=== PATIENT | female | born 1975 | race Caucasian/White ===

== ENCOUNTER 2017-10-20 20:46 | Inpatient (IN) | payer OTHER ==
[2017-10-20] MEDS ORDERED: ASPIRIN 81 MG CHEWABLE TABLETS PO ONE (21:03)
--- NOTE | 2017-10-20 21:06 | PDOC ---
History of Present Illness - General History Source: Patient Exam Limitations: No Limitations <Ina Caldwell - Last Filed: 10/20/17 23:12> - General History Source: Patient - History of Present Illness Presenting Symptoms: Chest Pain Timing/Duration: reports: changing over time Severity/Quality: reports: pressure Location: reports: other (left sided chest pain) Chest Pain Radiation: reports: arms (radiates to left arm) Activities at Onset: reports: other (fighting with her daughter) Modifying Factors: improves with: nitroglycerin Nitro Today/Relief: Yes: 0.4 mg x 2, provided by EMS Aspirin Received prior to arrival (Core Measure): Yes: 325 mg x 1, provided by EMS Beta Jenaro given by EMS (Core Measure): Yes <Cassidy Hall - Last Filed: 10/21/17 00:12> - General Stated Complaint: CHEST PAIN Time Seen by Provider: 10/20/17 20:53 - History of Present Illness Initial Comments: 10/20/17 21:09 The patient is a 38 y/o female with no significant past medical history, who presents with intermittent left-sided chest pain radiating to her left arm that began tonight after an argument with her daughter. She denies any diaphoresis or vomiting. Denies any nausea or lightheadedness. She notes that the pain was sudden and radiates to the left arm. The pain is non pleuritic with no alleviating or exacerbating factors. She denies taking any medication. She was administered 325 mg of aspirin by EMS. No PSH Allergies - NKA (Ina Caldwell) Past History <Ina Caldwell - Last Filed: 10/20/17 23:12> - Family Disease History Family Disease History: Diabetes: Brother - Suicide/Smoking/Psychosocial Hx Smoking Status: No Smoking History: Never smoked Number of Cigarettes Smoked Daily: 0 <Cassidy Hall - Last Filed: 10/21/17 00:12> - Past Medical History Allergies/Adverse Reactions: Allergies Allergy/AdvReac Type Severity Reaction Status Date / Time No Known Allergies Allergy Verified 10/20/17 21:48 Home Medications: Ambulatory Orders NK [No Known Home Medication] 10/20/17 Review of Systems - Review of Systems Able to Perform ROS?: Yes <Ina Caldwell - Last Filed: 10/20/17 23:12> <Cassidy Hallh - Last Filed: 10/21/17 00:12> - Review of Systems Comments:: 10/20/17 21:10 CONSTITUTIONAL: Absent: fever, chills, diaphoresis, generalized weakness, malaise, loss of appetite HEENT: Absent: rhinorrhea, nasal congestion, throat pain, throat swelling, difficulty swallowing, mouth swelling, ear pain, eye pain, visual Changes CARDIOVASCULAR: Present:chest pain Absent: syncope, palpitations, irregular heart rate, lightheadedness, peripheral edema RESPIRATORY: Absent: cough, shortness of breath, dyspnea with exertion, orthopnea, wheezing, stridor, hemoptysis GASTROINTESTINAL: Absent: abdominal pain, abdominal distension, nausea, vomiting, diarrhea, constipation, melena, hematochezia GENITOURINARY: Absent: dysuria, frequency, urgency, hesitancy, hematuria, flank pain, genital pain MUSCULOSKELETAL: Present: left arm pain Absent: myalgia, arthralgia, joint swelling SKIN: Absent: rash, itching, pallor HEMATOLOGIC/IMMUNOLOGIC: Absent: easy bleeding, easy bruising, lymphadenopathy, frequent infections ENDOCRINE: Absent: unexplained weight gain, unexplained weight loss, heat intolerance, cold intolerance NEUROLOGIC: Absent: headache, focal weakness or paresthesias, dizziness, unsteady gait, seizure, mental status changes, bladder or bowel incontinence PSYCHIATRIC: Absent: anxiety, depression, suicidal or homicidal ideation, hallucinations. (Ina Caldwell) *Physical Exam <Ina Caldwell - Last Filed: 10/20/17 23:12> <Cassidy Hall - Last Filed: 10/21/17 00:12> - Vital Signs Last Vital Signs Temp Pulse Resp BP Pulse Ox 97.6 F 90 19 149/72 100 10/20/17 21:42 10/20/17 21:42 10/20/17 21:42 10/20/17 21:42 10/20/17 21:42 - Physical Exam Comments: 10/20/17 21:11 GENERAL: Well developed, well nourished. Awake and alert. No acute distress. HEENT: Normocephalic, atraumatic. PERRLA, EOMI. No conjunctival pallor. Sclera are non- icteric. Moist mucous membranes. Oropharynx is clear. NECK: Supple. Full ROM. No JVD. Carotid pulses 2+ and symmetric, without bruits. No thyromegaly. No lymphadenopathy. CARDIOVASCULAR: Regular rate and rhythm. No murmurs, rubs, or gallops. Distal pulses are 2+ and symmetric. PULMONARY: No evidence of respiratory distress. Lungs clear to auscultation bilaterally. No wheezing, rales or rhonchi. ABDOMINAL: Soft. Non-tender. Non-distended. No rebound or guarding. No organomegaly. Normoactive bowel sounds. MUSCULOSKELETAL Normal range of motion at all joints. No bony deformities or tenderness. No CVA tenderness. EXTREMITIES: No cyanosis. No clubbing. No edema. No calf tenderness. SKIN: Warm and dry. Normal capillary refill. No rashes. No jaundice. NEUROLOGICAL: Alert, awake, appropriate. Cranial nerves 2-12 intact. No deficits to light touch and temperature in face, upper extremities and lower extremities. No motor deficits in the in face, upper extremities and lower extremities. Normoreflexic in the upper and lower extremities. Normal speech. PSYCHIATRIC: Cooperative. Good eye contact. Appropriate mood and affect. (Ina Caldwell) Heart Score/ECG Review - History History: Highly suspicious - Electrocardiogram EKG: Significant ST-depression - Age Age: </= 45 - Risk Factors Based on the list above the patient has:: No risk factors known - Troponin Troponin: >/=3x normal limit - Score Heart Score - Total: 6 <Cassidy Hall - Last Filed: 10/21/17 00:12> ED Treatment Course - LABORATORY CBC & Chemistry Diagram: 10/20/17 21:20 10/20/17 21:20 <Ina Caldwell - Last Filed: 10/20/17 23:12> - LABORATORY CBC & Chemistry Diagram: 10/20/17 21:20 10/20/17 21:20 <Cassidy Hall - Last Filed: 10/21/17 00:12> - ADDITIONAL ORDERS Additional order review: Laboratory Results 10/20/17 10/20/17 10/20/17 22:30 21:20 21:20 PT with INR INR Sodium 143 Potassium 4.1 D Chloride 113 H Carbon Dioxide 23 Anion Gap 7 L BUN 8 D Creatinine 0.6 D Creat Clearance w eGFR > 60 Random Glucose 114 H D Calcium 7.7 L Magnesium 2.3 Total Bilirubin 0.5 D AST 37 ALT 40 D Alkaline Phosphatase 123 H Creatine Kinase 303 H 306 H Creatine Kinase Index 2.5 2.2 CK-MB (CK-2) 7.827 H 6.982 H Troponin I 4.34 H* 2.87 H* Total Protein 7.5 Albumin 3.8 Serum , Qual Negative 10/20/17 21:20 PT with INR 11.20 INR 0.99 Sodium Potassium Chloride Carbon Dioxide Anion Gap BUN Creatinine Creat Clearance w eGFR Random Glucose Calcium Magnesium Total Bilirubin AST ALT Alkaline Phosphatase Creatine Kinase Creatine Kinase Index CK-MB (CK-2) Troponin I Total Protein Albumin Serum , Qual 10/20/17 21:20 RBC 4.93 MCV 69.1 L MCHC 31.6 L RDW 15.1 D MPV 7.9 Neutrophils % 79.1 D Lymphocytes % 16.0 D Monocytes % 3.4 L Eosinophils % 0.8 Basophils % 0.7 - RADIOLOGY Radiology Studies Ordered: Category Date Time Status CHEST X-RAY PORTABLE* [RAD] Stat Radiology 10/20/17 22:22 Taken - Medications Given in the ED: ED Medications Discontinued Medications Generic Name Dose Route Start Last Admin Trade Name Freq PRN Reason Stop Dose Admin Atorvastatin Calcium 10 mg 10/20/17 22:54 10/20/17 23:32 Lipitor - PO 10/20/17 22:55 10 mg ONCE ONE Administration Clopidogrel Bisulfate 75 mg 10/20/17 22:52 10/20/17 23:32 Plavix - PO 10/20/17 22:53 75 mg ONCE ONE Administration Metoprolol Tartrate 25 mg 10/20/17 22:31 10/20/17 23:31 Lopressor - PO 10/20/17 22:32 25 mg ONCE ONE Administration Medical Decision Making - Critical Care Time Total Critical Care Time (minutes): 30 Critical Care Statement: The care of this patient involved high complexity decision making to prevent further life threatening deterioration of the patient 's condition and/or to evaluate & treat vital organ system(s) failure or risk of failure. <Ina Caldwell - Last Filed: 10/20/17 23:12> *DC/Admit/Observation/Transfer <Ina Caldwell - Last Filed: 10/20/17 23:12> - Discharge Dispostion Admit: Yes <Cassidy Hall - Last Filed: 10/21/17 00:12> Diagnosis at time of Disposition: Myocardial infarction Qualifiers: Myocardial infarction ST status: non-ST elevation myocardial infarction Qualified Code(s): I21.4 - Non-ST elevation (NSTEMI) myocardial infarction - Discharge Dispostion Condition at time of disposition: Good - Attestations Scribe Attestion: 10/20/17 21:12 Documentation prepared by BRAXTON Petit, acting as medical writer for Cassidy Hall MD/DO. (Ina Caldwell)
[2017-10-20] MEDS ORDERED: ASPIRIN 81 MG CHEWABLE TABLETS ONE (21:28)
[2017-10-20 21:38] LABS: BASO % 0.7 % (0-2.0); EOS % 0.8 % (0-4.5); HEMATOCRIT 34.1 % (32.4-45.2); HEMOGLOBIN 10.7 GM/dL (10.7-15.3); MCH 21.8 pg (25.7-33.7); MCHC 31.6 g/dl (32.0-36.0); MEAN CELL VOLUME 69.1 fl (80-96); MEAN PLT VOLUME 7.9 fl (7.5-11.1); MONO % 3.4 % (3.8-10.2); NEUT % 79.1 % (42.8-82.8); PLATELET COUNT 328 K/MM3 (134-434); RBC 4.93 M/mm3 (3.60-5.2); RDW 15.1 % (11.6-15.6); WHITE BLOOD COUNT 8.5 K/mm3 (4.0-10.0)
[2017-10-20 21:39] LABS: ADD RBC MORPHOLOGY YES
[2017-10-20 21:51] LABS: INR 0.99 (0.82-1.09); PROTHROMBIN TIME (PATIENT) 11.2 SEC (9.98-11.88)
[2017-10-20 22:00] LABS: ALBUMIN 3.8 g/dl (3.4-5.0); ANION GAP 7 (8-16); BILIRUBIN,TOTAL 0.5 mg/dL (0.2-1.0); BLOOD UREA NITROGEN 8 mg/dL (7-18); CALCIUM 7.7 mg/dL (8.5-10.1); CHLORIDE 113 mmol/L (98-107); CO2 23 mmol/L (21-32); CREATININE 0.6 mg/dL (0.55-1.02); GLUCOSE,RANDOM 114 mg/dL (74-106); MAGNESIUM 2.3 mg/dL (1.8-2.4); POTASSIUM 4.1 mmol/L (3.5-5.1); SGOT/AST 37 U/L (15-37); SGPT/ALT 40 U/L (12-78); SODIUM 143 mmol/L (136-145); TOT PROT 7.5 g/dl (6.4-8.2)
[2017-10-20 22:14] LABS: ALK PHOS 123 U/L (45-117)
[2017-10-20] MEDS ORDERED: METOPROLOL TARTRATE 25 MG TABLET (FP) PO ONE (22:31)
[2017-10-20] MEDS ORDERED: HEPARIN NA (PORCINE) 5,000 UNITS/ML 1ML VIAL IVPUSH PRN ×2 (22:35→23:46)
[2017-10-20] MEDS ORDERED: CLOPIDOGREL BISULFATE 75 MG TABLET (FP) PO ONE (22:52)
[2017-10-20] MEDS ORDERED: ATORVASTATIN CA 10 MG TABLET (FP) PO ONE (22:54)
[2017-10-20 22:57] LABS: ANISOCYTOSIS 1+; MACROCYTOSIS 1+; PLATELET ESTIMATE ADEQUATE
--- NOTE | 2017-10-20 23:17 | HP ---
CHIEF COMPLAINT:Left chest pain PCP: HISTORY OF PRESENT ILLNESS: 42 year old female with no past medical history who presented to the Ed with left side chest pain. The pain started around 6 pm ,10/10, pressure like heavy squeezing , last 10-20 min, associated with left arm numbness and left scapula pain. the pain worsen with leaning forward or laying down improved with nitroglycerine given by EMS. She report some SOB ,palpitation but she denies any diaphoresis, N/V. She can walk up to one hout before she feel SOB, she sleep on 2 pillows . She report chest pain 2-3 years ago but not as sever as this one. She denies any dizziness or light headedness, blurry vision,abdominal pain , D/C , urinary symptoms , leg swelling. ER course was notable for: (1)EKG shows revascularization with T wave inversion in V4, V5,V6. (2)TROP elevated 2.87/ 4.34, CK-MP 6.9, CK 303, ALP 123 (3)Aspirin, plavix , nitro , statin, Recent Travel:NO PAST MEDICAL HISTORY: Migraine Headache , chest pain 2-3 years ago PAST SURGICAL HISTORY: None Social History: Smoking:Denies Alcohol:Denies Drugs: Denies Family History: no significant family history, 2 brother with DM , FAther was killed , mom with car accident Allergies No Known Allergies Allergy (Verified 10/20/17 21:48) HOME MEDICATIONS: Home Medications Medication Instructions Recorded NK [No Known Home Medication] 10/20/17 REVIEW OF SYSTEMS CONSTITUTIONAL: Absent: fever, chills, diaphoresis, generalized weakness, malaise, loss of appetite, weight change HEENT: Absent: rhinorrhea, nasal congestion, throat pain, throat swelling, difficulty swallowing, mouth swelling, ear pain, eye pain, visual changes CARDIOVASCULAR: Absent:+chest pain, syncope,+ palpitations, irregular heart rate, lightheadedness, peripheral edema RESPIRATORY: Absent: cough, shortness of breath, dyspnea with exertion,+ orthopnea, wheezing , stridor, hemoptysis GASTROINTESTINAL: Absent: abdominal pain, abdominal distension, nausea, vomiting, diarrhea, constipation, melena, hematochezia GENITOURINARY: Absent: dysuria, frequency, urgency, hesitancy, hematuria, flank pain, genital pain MUSCULOSKELETAL: Absent: myalgia, arthralgia, joint swelling, back pain, neck pain SKIN: Absent: rash, itching, pallor HEMATOLOGIC/IMMUNOLOGIC: Absent: easy bleeding, easy bruising, lymphadenopathy, frequent infections ENDOCRINE: Absent: unexplained weight gain, unexplained weight loss, heat intolerance, cold intolerance NEUROLOGIC: Absent: headache, focal weakness or paresthesias, dizziness, unsteady gait, seizure, mental status changes, bladder or bowel incontinence PSYCHIATRIC: Absent: anxiety, depression, suicidal or homicidal ideation, hallucinations. PHYSICAL EXAMINATION Vital Signs - 24 hr 10/20/17 21:42 Temperature 97.6 F Pulse Rate 90 Respiratory 19 Rate Blood Pressure 149/72 O2 Sat by Pulse 100 Oximetry (%) GENERAL: Awake, alert, and fully oriented, in mild distress. HEAD: Normal with no signs of trauma. EYES: Pupils equal, round and reactive to light, sclera anicteric, conjunctiva clear. EARS, NOSE, THROAT: Moist mucous membranes. NECK: Normal range of motion, supple without lymphadenopathy, JVD, or masses. LUNGS: Breath sounds equal, clear to auscultation bilaterally. No wheezes, and no crackles. No accessory muscle use. HEART: Regular rate and rhythm, normal S1 and S2 without murmur, rub or gallop. ABDOMEN: Soft, nontender, not distended, normoactive bowel sounds, no guarding, no rebound, no masses. MUSCULOSKELETAL: Normal range of motion at all joints. No bony deformities or tenderness. No CVA tenderness. LOWER EXTREMITIES: 2+ pulses, warm, well-perfused. No calf tenderness. No peripheral edema. NEUROLOGICAL: Normal speech. PSYCHIATRIC: Cooperative. Good eye contact. Appropriate mood and affect. SKIN: Warm, dry, normal turgor, no rashes or lesions noted, normal capillary refill. Laboratory Results - last 24 hr 10/20/17 10/20/17 10/20/17 21:20 21:20 21:20 WBC 8.5 RBC 4.93 Hgb 10.7 D Hct 34.1 MCV 69.1 L MCH 21.8 L MCHC 31.6 L RDW 15.1 D Plt Count 328 D MPV 7.9 Neutrophils % 79.1 D Lymphocytes % 16.0 D Monocytes % 3.4 L Eosinophils % 0.8 Basophils % 0.7 Hypochromia 1+ Platelet Estimate Adequate Platelet Comment Polychromasia 1+ Anisocytosis 1+ Microcytosis 1+ Macrocytosis 1+ PT with INR 11.20 INR 0.99 Sodium Potassium Chloride Carbon Dioxide Anion Gap BUN Creatinine Creat Clearance w eGFR Random Glucose Calcium Magnesium Total Bilirubin AST ALT Alkaline Phosphatase Creatine Kinase Creatine Kinase Index CK-MB (CK-2) Troponin I Total Protein Albumin Serum , Qual Negative 10/20/17 21:20 WBC RBC Hgb Hct MCV MCH MCHC RDW Plt Count MPV Neutrophils % Lymphocytes % Monocytes % Eosinophils % Basophils % Hypochromia Platelet Estimate Platelet Comment Polychromasia Anisocytosis Microcytosis Macrocytosis PT with INR INR Sodium 143 Potassium 4.1 D Chloride 113 H Carbon Dioxide 23 Anion Gap 7 L BUN 8 D Creatinine 0.6 D Creat Clearance w eGFR > 60 Random Glucose 114 H D Calcium 7.7 L Magnesium 2.3 Total Bilirubin 0.5 D AST 37 ALT 40 D Alkaline Phosphatase 123 H Creatine Kinase 306 H Creatine Kinase Index 2.2 CK-MB (CK-2) 6.982 H Troponin I 2.87 H* Total Protein 7.5 Albumin 3.8 Serum , Qual CBC, BMP 10/20/17 21:20 10/20/17 21:20 ASSESSMENT/PLAN: 42 year old female with no past medical history who presented to the ED for left chest pain was found to have Non STEMI with heart score of 4 , was admitted to ICU for further evaluation # NSTEMI * Admit to ICU * Heart score of 5 , Abdullahi score of 2 * Clopidogrel 300mg in ED, continue 75 mg daily * Nitroglycerine 0.4 SL PRN * Morphine 1 mg IM injection PRN for pain * Statin 10 mg in ED, continue with 80 mg Po daily * BB, Metoprolol 25 mg po daily * O2 @ 2L * trend trop * EKG in AM * Echocardiogram in AM * Consult cardiology Dr.Anthony Overton * ABG * HGBA1C * Lipid panel * #FEN * NS @75 cc * E: monitor , repet CMP in AM * Npo for possible cath tomorrow * Proh : * Hep drip , moderate risk * * # Dispo, * Admit to ICU Visit type - Emergency Visit Emergency Visit: Yes ED Registration Date: 10/20/17 Care time: The patient presented to the Emergency Department on the above date and was hospitalized for further evaluation of their emergent condition. - New Patient This patient is new to me today: Yes Date on this admission: 10/21/17 - Critical Care Critical Care patient: Yes Total Critical Care Time (in minutes): 40 Critical Care Statement: The care of this patient involved high complexity decision making to prevent further life threatening deterioration of the patient 's condition and/or to evaluate & treat vital organ system(s) failure or risk of failure.
--- NOTE | 2017-10-20 23:18 | PN ---
Teaching Attending Note Name of Resident: Rodolfo Muñiz ATTENDING PHYSICIAN STATEMENT I saw and evaluated the patient. I reviewed the resident's note and discussed the case with the resident. I agree with the resident's findings and plan as documented. SUBJECTIVE: 38 F with no significant pmhx who presents with chest pain on the left side, radiating to her left arm. States she was involved in a argument with a family member and did not have any nausea or vomiting. States she recieved ASA 325 by EMS. States her chest pain has improved. No N/V/D. No fevers or chills. States she does not currently have chest pressure. Denies any shortness of breath OBJECTIVE: Physical: VS: Vital Signs Period Temp Pulse Resp BP Sys/Ferrera Pulse Ox Last 24 Hr 97.6 F 90 19 149/72 100 GEN: NAD, Resting in bed, able to speak full sentences HEENT: NCAT, PERRL, Throat without erythema or exudates CARD: RRR S1,S2 RESP: CTAB ABD: BSx4, NTD to palpation EXT:- C/C/E CBCD WBC 8.5 K/mm3 (4.0-10.0) 10/20/17 21:20 RBC 4.93 M/mm3 (3.60-5.2) 10/20/17 21:20 Hgb 10.7 GM/dL (10.7-15.3) D 10/20/17 21:20 Hct 34.1 % (32.4-45.2) 10/20/17 21:20 MCV 69.1 fl (80-96) L 10/20/17 21:20 MCHC 31.6 g/dl (32.0-36.0) L 10/20/17 21:20 RDW 15.1 % (11.6-15.6) D 10/20/17 21:20 Plt Count 328 K/MM3 (134-434) D 10/20/17 21:20 MPV 7.9 fl (7.5-11.1) 10/20/17 21:20 CMP Sodium 143 mmol/L (136-145) 10/20/17 21:20 Potassium 4.1 mmol/L (3.5-5.1) D 10/20/17 21:20 Chloride 113 mmol/L (98-107) H 10/20/17 21:20 Carbon Dioxide 23 mmol/L (21-32) 10/20/17 21:20 Anion Gap 7 (8-16) L 10/20/17 21:20 BUN 8 mg/dL (7-18) D 10/20/17 21:20 Creatinine 0.6 mg/dL (0.55-1.02) D 10/20/17 21:20 Creat Clearance w eGFR > 60 (>60) 10/20/17 21:20 Random Glucose 114 mg/dL (74-106) H D 10/20/17 21:20 Calcium 7.7 mg/dL (8.5-10.1) L 10/20/17 21:20 Total Bilirubin 0.5 mg/dL (0.2-1.0) D 10/20/17 21:20 AST 37 U/L (15-37) 10/20/17 21:20 ALT 40 U/L (12-78) D 10/20/17 21:20 Alkaline Phosphatase 123 U/L (45-117) H 10/20/17 21:20 Total Protein 7.5 g/dl (6.4-8.2) 10/20/17 21:20 Albumin 3.8 g/dl (3.4-5.0) 10/20/17 21:20 CARDIAC ENZYMES Creatine Kinase 306 IU/L (26-192) H 10/20/17 21:20 Troponin I 2.87 ng/ml (0.00-0.05) H* 10/20/17 21:20 EKG: NSR [id number] lateral leads, Prolong QtC CXR: Pending HEART 4 ASSESSMENT AND PLAN: 42 F with no pmhx who presents with chest pain being admitted for NSTEMI 1.) NSTEMI - ASA - Plavix - 02 - Metoprolol - Nitro/Morphine prn - Hep. gtt - Trend Trop/EKG - Cardiology consulted and spoken to by ED - Check. Lipis Panel/A1C - Statin 2.) Dvt Ppx - Hep. gtt Accepted by ICU CC Time: 35 minutes
[2017-10-20] MEDS ORDERED: CLOPIDOGREL BISULFATE 75 MG TABLET (FP) ONE (23:19)
[2017-10-20] MEDS ORDERED: METOPROLOL TARTRATE 25 MG TABLET (FP) ONE (23:19)
[2017-10-20] MEDS ORDERED: ATORVASTATIN CA 40 MG TABLET (FP) ONE (23:19)
[2017-10-20] MEDS ORDERED: HEPARIN INFUSION - 25,000 UNITS/500 ML INFUS.BAG IVPB ONE (23:20)
[2017-10-20] MEDS ORDERED: HEPARIN NA (PORCINE) 5,000 UNITS/ML 1ML VIAL ONE (23:20)
[2017-10-20] MEDS: HEPARIN - 25,000 UNIT in SODIUM CHLORIDE 495 ML IV SCH (23:31)
[2017-10-20] MEDS ORDERED: CLOPIDOGREL BISULFATE 300 MG TABLET PO ONE (23:56)
[2017-10-20] MEDS ORDERED: NITROGLYCERIN SUBLINGUAL 1/150 0.4 MG TAB SL ONE (23:58)
[2017-10-21] MEDS ORDERED: NITROGLYCERIN SUBLINGUAL 1/150 0.4 MG TAB SL PRN (00:52)
[2017-10-21] MEDS ORDERED: SODIUM CHLORIDE 1,000 ML IV SCH (01:00)
--- NOTE | 2017-10-21 01:07 | MSN ---
Admitting History and Physical - Admission Chief Complaint: "chest pain" History of Present Illness: Mrs. Holland is a 42yo female with a history of migraines who presented to the ED via ambulance due to chest pain which began at 6pm today while in an argument with her spouse. She describes the pain as a 10/10 heavy, squeezing pain with left arm numbness and radiation to the left shoulder and scapula. She felt as though her heart was racing at the onset of her chest pain. Pain is aggravated by leaning forward and deep inspiration. Patient's chest pain improved with the administration of aspirin on the ambulance. Patient denies chills, fevers, nausea, vomiting, swelling of her extremities, chest pain with exertion, GERD, abdominal pain. 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: Migraine - Past Surgical History Past Surgical History: Yes: None - Smoking History Smoking history: Never smoked Have you smoked in the past 12 months: No Aproximately how many cigarettes per day: 0 (exposed to second hand smoke) - Alcohol/Substance Use Hx Alcohol Use: No History of Substance Use: reports: None - Social History Usual Living Arrangement: Yes: With Spouse, With Child 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 [employer] Medications - Allergies Allergies/Adverse Reactions: Allergies Allergy/AdvReac Type Severity Reaction Status Date / Time No Known Allergies Allergy Verified 10/20/17 21:48 - Home Medications Home Medications: Ambulatory Orders NK [No Known Home Medication] 10/20/17 Family Disease History - Family Disease History Family Disease History: Diabetes: Brother Review of Systems - Review of Systems Eyes: reports: No Symptoms HENT: reports: No Symptoms Neck: reports: No Symptoms Cardiovascular: reports: Chest Pain, Palpitations Respiratory: reports: Orthopnea Gastrointestinal: reports: No Symptoms Genitourinary: reports: No Symptoms Musculoskeletal: reports: No Symptoms Neurological: reports: No Symptoms Physical Examination Vital Signs: Vital Signs Temperature 97.6 F 10/20/17 21:42 Pulse Rate 87 10/21/17 00:40 Respiratory Rate 20 10/21/17 00:40 Blood Pressure 114/93 10/21/17 00:40 O2 Sat by Pulse Oximetry (%) 99 10/21/17 00:40 Constitutional: Yes: Well Nourished, Calm Eyes: Yes: WNL, EOM Intact HENT: Yes: WNL, Atraumatic, Normocephalic Neck: Yes: WNL, Supple, Trachea Midline Cardiovascular: Yes: Regular Rate and Rhythm Respiratory: Yes: WNL, CTA Bilaterally Gastrointestinal: Yes: WNL, Normal Bowel Sounds, Soft Edema: No Peripheral Pulses WNL: Yes Neurological: Yes: WNL, Alert, Oriented Labs: CBC, BMP 10/20/17 21:20 10/20/17 21:20 Laboratory Results - last 24 hr 10/20/17 10/20/17 10/20/17 21:20 21:20 21:20 WBC 8.5 RBC 4.93 Hgb 10.7 D Hct 34.1 MCV 69.1 L MCH 21.8 L MCHC 31.6 L RDW 15.1 D Plt Count 328 D MPV 7.9 Neutrophils % 79.1 D Lymphocytes % 16.0 D Monocytes % 3.4 L Eosinophils % 0.8 Basophils % 0.7 Hypochromia 1+ Platelet Estimate Adequate Platelet Comment Polychromasia 1+ Anisocytosis 1+ Microcytosis 1+ Macrocytosis 1+ PT with INR 11.20 INR 0.99 Sodium Potassium Chloride Carbon Dioxide Anion Gap BUN Creatinine Creat Clearance w eGFR Random Glucose Calcium Magnesium Total Bilirubin AST ALT Alkaline Phosphatase Creatine Kinase Creatine Kinase Index CK-MB (CK-2) Troponin I Total Protein Albumin Serum , Qual Negative 10/20/17 10/20/17 21:20 22:30 WBC RBC Hgb Hct MCV MCH MCHC RDW Plt Count MPV Neutrophils % Lymphocytes % Monocytes % Eosinophils % Basophils % Hypochromia Platelet Estimate Platelet Comment Polychromasia Anisocytosis Microcytosis Macrocytosis PT with INR INR Sodium 143 Potassium 4.1 D Chloride 113 H Carbon Dioxide 23 Anion Gap 7 L BUN 8 D Creatinine 0.6 D Creat Clearance w eGFR > 60 Random Glucose 114 H D Calcium 7.7 L Magnesium 2.3 Total Bilirubin 0.5 D AST 37 ALT 40 D Alkaline Phosphatase 123 H Creatine Kinase 306 H 303 H Creatine Kinase Index 2.2 2.5 CK-MB (CK-2) 6.982 H 7.827 H Troponin I 2.87 H* 4.34 H* Total Protein 7.5 Albumin 3.8 Serum , Qual Imaging - Results Chest X-ray: Image Reviewed EKG: Image Reviewed (T wave inversion on lateral leads suggestive of NSTEMI.) Assessment/Plan Assessment: 42yo F with chest pain which radiates to left shoulder/scapula and left arm numbness, with ECG suggestive of NSTEMI and heart score of 5. Other differential diagnosis include unstable angina and PE. Plan: #NSTEMI - admit patient to ICU - administer Aspirin (Asa -) 162 mg PO DAILY SAROJ Atorvastatin Calcium (Lipitor -) 80 mg PO HS SAROJ Clopidogrel Bisulfate (Plavix -) 75 mg PO DAILY SAROJ Metoprolol Tartrate (Lopressor -) 25 mg PO DAILY SAROJ Morphine Sulfate (Morphine Sulfate) 1 mg IM Q6H PRN pain Nitroglycerin (Nitrostat -) 0.4 mg SL Q5M PRN chest pain - monitor ECG and cardiac enzymes q6h for signs of new SD - cardiology consult - echocardiogram - A1C and lipid panel pending #hypoxemia possibly due to pulmonary congestion or PE. pulse ox range 90-94 on room air - nasal cannula 2L. titrate to >94% - ABG ordered, pending #DVT prophylaxis - Heparin Sodium (Porcine) 25,000 unit/ Sodium Chloride) 500 mls @ 16 mls/hr IV TITR SAROJ; 800 UNIT/HR #FEN - fluid: Sodium Chloride (Normal Saline -) 1,000 mls @ 75 mls/hr IV ASDIR SAROJ - electrolytes: no abnormalities. daily BMP - nutrition: NPO in case cath is needed
[2017-10-21] MEDS ORDERED: morphine SULFATE 4 MG/ML VIAL IM PRN (01:08)
[2017-10-21 01:43] VITALS: BMI 26.1
--- NOTE | 2017-10-21 05:29 | CONSULT ---
Consult Consult Specialty:: Pulmonary Critical Care Reason for Consultation:: NSTEMI - History of Present Illness Chief Complaint: chest pain History of Present Illness: 42 yo with no past medical history who presented to ED with left sided chest pain. Was given nitro en route to the hospital with some improvement. In ER EKG with no ST elevations, T wave inversions in V4, V5, V6. Initial troponin 2.8--> later up to 4.3. Was started on ASA/plavix/statin/metoprolol/heparin drip and transferred to ICU for further management. Current Medications Aspirin (Asa -) 81 mg PO DAILY [facility] Atorvastatin Calcium (Lipitor -) 80 mg PO HS [facility] Chlorhexidine Gluconate (Hibiclens For Decolonization -) 1 applic TP HS [facility] Clopidogrel Bisulfate (Plavix -) 75 mg PO DAILY [facility] Heparin Sodium (Porcine) (Heparin -) 5,000 unit IVPUSH PRN PRN PRN Reason: Heparin Last Admin: 10/20/17 23:31 Dose: 5,000 unit Heparin Sodium (Porcine) 25, (000 unit/ Sodium Chloride) 500 mls @ 16 mls/hr IV TITR SAROJ; 800 UNIT/HR PRN Reason: Protocol Last Admin: 10/20/17 23:31 Dose: 800 unit/hr, 16 mls/hr Sodium Chloride (Normal Saline -) 1,000 mls @ 75 mls/hr IV ASDIR SAROJ Last Admin: 10/21/17 02:03 Dose: 75 mls/hr Influenza Virus Vaccine Quadrival (Flulaval Quad [id number]) 60 mcg IM .ONCE ONE Stop: 10/21/17 10:01 Metoprolol Tartrate (Lopressor -) 25 mg PO DAILY [facility] Morphine Sulfate (Morphine Sulfate) 1 mg IM Q6H PRN PRN Reason: PAIN Nitroglycerin (Nitrostat -) 0.4 mg SL Q5M PRN PRN Reason: FOR CHEST PAIN - Past Medical History SUPPORT ARCHITECT: Yes: Migraine - Past Surgical History Past Surgical History: Yes: None - Alcohol/Substance Use Hx Alcohol Use: No History of Substance Use: reports: None - Smoking History Smoking history: Never smoked Have you smoked in the past 12 months: No Aproximately how many cigarettes per day: 0 (exposed to second hand smoke) - Social History 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 Medications - Allergies Allergies/Adverse Reactions: Allergies Allergy/AdvReac Type Severity Reaction Status Date / Time No Known Allergies Allergy Verified 10/20/17 21:48 - Home Medications Home Medications: Ambulatory Orders NK [No Known Home Medication] 10/20/17 Family Disease History - Family Disease History Family Disease History: Diabetes: Brother Physical Exam Vital Signs: Vital Signs Temperature 98.5 F 10/21/17 01:30 Pulse Rate 73 10/21/17 04:36 Respiratory Rate 16 10/21/17 04:36 Blood Pressure 95/71 10/21/17 04:36 O2 Sat by Pulse Oximetry (%) 100 10/21/17 01:52 Constitutional: Yes: Well Nourished, No Distress Cardiovascular: Yes: Regular Rate and Rhythm Respiratory: Yes: WNL Gastrointestinal: Yes: WNL Edema: No Labs: CBC, BMP 10/20/17 21:20 10/20/17 21:20 Troponin, BNP 10/20/17 10/20/17 21:20 22:30 Troponin I 2.87 H* 4.34 H* Imaging - Results Chest X-ray: Report Reviewed Assessment/Plan NSTEMI -cardiology consult -cont asa/plavix/statin/BB -cont heparin drip -supplemental O2 as needed -trend troponin -EKG -TTE Khushboo WILD Critical Care time: 35 min
[2017-10-21 08:00] LABS: INR 1.06 (0.82-1.09)
[2017-10-21 08:26] LABS: ALBUMIN 3.4 g/dl (3.4-5.0); ANION GAP 9 (8-16); BILIRUBIN,TOTAL 0.7 mg/dL (0.2-1.0); BLOOD UREA NITROGEN 9 mg/dL (7-18); CALCIUM 7.8 mg/dL (8.5-10.1); CHLORIDE 111 mmol/L (98-107); CO2 22 mmol/L (21-32); CREATININE 0.6 mg/dL (0.55-1.02); GLUCOSE,RANDOM 100 mg/dL (74-106); MAGNESIUM 2.4 mg/dL (1.8-2.4); POTASSIUM 3.7 mmol/L (3.5-5.1); SGOT/AST 37 U/L (15-37); SGPT/ALT 35 U/L (12-78); SODIUM 142 mmol/L (136-145); TOT PROT 6.8 g/dl (6.4-8.2)
[2017-10-21 08:27] LABS: ALK PHOS 106 U/L (45-117)
--- NOTE | 2017-10-21 09:12 | PN ---
Progress Note (short form) - Note Progress Note: Chief Complaint: Events noted, notes reviewed, denies any further chest pain, denies any further dyspnea History of Present Illness: Seen and examined in the ICU. Events noted, notes reviewed, denies any further chest pain, denies any further dyspnea Plan to proceed with [facility] coronary angiography for further evaluation and possible intervention considering her clinical presentation Medications: Current Medications Aspirin (Asa -) 81 mg PO DAILY [facility] Atorvastatin Calcium (Lipitor -) 80 mg PO HS [facility] Chlorhexidine Gluconate (Hibiclens For Decolonization -) 1 applic TP HS [facility] Clopidogrel Bisulfate (Plavix -) 75 mg PO DAILY [facility] Heparin Sodium (Porcine) (Heparin -) 5,000 unit IVPUSH PRN PRN PRN Reason: Heparin Last Admin: 10/20/17 23:31 Dose: 5,000 unit Heparin Sodium (Porcine) 25, (000 unit/ Sodium Chloride) 500 mls @ 16 mls/hr IV TITR SAROJ; 800 UNIT/HR PRN Reason: Protocol Last Admin: 10/20/17 23:31 Dose: 800 unit/hr, 16 mls/hr Sodium Chloride (Normal Saline -) 1,000 mls @ 75 mls/hr IV ASDIR SAROJ Last Admin: 10/21/17 02:03 Dose: 75 mls/hr Influenza Virus Vaccine Quadrival (Flulaval Quad [id number]) 60 mcg IM .ONCE ONE Stop: 10/21/17 10:01 Metoprolol Tartrate (Lopressor -) 25 mg PO DAILY [facility] Morphine Sulfate (Morphine Sulfate) 1 mg IM Q6H PRN PRN Reason: PAIN Nitroglycerin (Nitrostat -) 0.4 mg SL Q5M PRN PRN Reason: FOR CHEST PAIN Review of Systems Vital Signs: Last Vital Signs Temp Pulse Resp BP Pulse Ox 98.4 F 85 19 95/73 100 10/21/17 06:00 10/21/17 08:00 10/21/17 08:00 10/21/17 08:00 10/21/17 01:52 Intake & Output 10/18/17 10/19/17 10/20/17 10/21/17 23:59 23:59 23:59 23:59 Intake Total 471 Balance 471 Weight 140 lb 156 lb 12.8 oz Constitutional: No Distress, Calm Neck: Supple Negative JVD No Bruit Respiratory: Clear to A&P Bilaterally Cardiovascular: S1 S2 Regular Rate and Rhythm No Murmurs Clicks or Gallops Gastrointestinal: Soft Benign Normal Bowel Sounds Ext: No Edema Intact Distal Pulses Labs: Troponin, BNP 10/20/17 10/20/17 10/21/17 21:20 22:30 06:28 Troponin I 2.87 H* 4.34 H* 8.19 H* CBC, BMP 10/20/17 21:20 10/21/17 06:28 Hepatic Panel Total Bilirubin 0.7 mg/dL (0.2-1.0) D 10/21/17 06:28 AST 37 U/L (15-37) 10/21/17 06:28 ALT 35 U/L (12-78) 10/21/17 06:28 Alkaline Phosphatase 106 U/L (45-117) 10/21/17 06:28 Albumin 3.4 g/dl (3.4-5.0) 10/21/17 06:28 INR, PTT INR 1.06 (0.82-1.09) 10/21/17 06:28 Assessment/Plan ASSESSMENT: 1. Clinical presentation is consistent with CAD post STEMI, high lateral RI with re-perfusion angina pectoris 2. Probable transient LV ischemic dysfunction with acute class I NYHA classification LV congestive heart failure, resolved, other differential diagnosis includes Takotsubo's cardiomyopathy 3. Probable hypercholesterolemia 4. Second hand tobacco exposure PLAN: 1. Continue ASA, Plavix and Heparin with caution 2. Continue B-Blockers with Lopressor and dose twice daily hemodynamics permitting 3. Recommend the addition of ACEI or ARBS hemodynamics permitting 4. Continue Lipitor and obtain fasting lipid profile 5. Echocardiography to evaluate LV size and function 6. Probably early R&LHC& coronary angiography for further evaluation and possible intervention, above was discussed in detail with the patient risk, benefits and alternatives were reviewed Linda Juarez MD
[2017-10-21 09:32] LABS: CHOLESTEROL 184 mg/dL (50-200); LDL CHOLESTEROL (ONLY SJRH) 130 mg/dL (5-100); TRIGLYCERIDES 80 mg/dL (35-160)
[2017-10-21 09:48] LABS: HDL CHOLESTEROL 39 mg/dL (40-60)
[2017-10-21] MEDS ORDERED: MUPIROCIN 2% TOPICAL OINTMENT FOR DECOLONIZATION NS SCH (10:00)
[2017-10-21] MEDS: ASPIRIN 81 MG CHEWABLE TABLETS PO SCH (10:00)
[2017-10-21] MEDS ORDERED: ASPIRIN 81 MG CHEWABLE TABLETS PO SCH ×2 (10:00)
[2017-10-21] MEDS ORDERED: CLOPIDOGREL BISULFATE 75 MG TABLET (FP) PO SCH (10:00)
[2017-10-21] MEDS: METOPROLOL TARTRATE 25 MG TABLET (FP) PO SCH ×2 (10:00→21:52)
[2017-10-21] MEDS ORDERED: METOPROLOL TARTRATE 25 MG TABLET (FP) PO SCH ×3 (10:00)
[2017-10-21] MEDS ORDERED: FLU VACCINE QUAD 60 MCG/0.5 ML (MDV 17-18) IM ONE (10:00)
--- NOTE | 2017-10-21 11:24 | CONS ---
DATE OF CONSULTATION: 10/21/2017 REQUESTING PHYSICIAN: Hospitalist. CHIEF COMPLAINT: Chest discomfort. HISTORY OF PRESENT ILLNESS: This is a 42-year-old female with no significant past medical history, who denied any history of hypertensive cardiovascular disease, diabetes mellitus, hypercholesterolemia, or family history of premature coronary artery disease, but reported second-hand tobacco exposure, who presented to [facility] Emergency Room with a sudden onset of chest discomfort. Chest discomfort was described as retrosternal discomfort with associated dyspnea. Upon arrival to the emergency room, there were dynamic electrocardiographic changes, and patient was initiated on IV heparin and in addition given sublingual nitroglycerin with alleviation of the above-noted discomfort. Patient did not report any associated diaphoresis. Patient this a.m. denies any chest discomfort. Patient denies any dyspnea. No reported history of orthopnea, paroxysmal nocturnal dyspnea, or peripheral edema. Patient denies any palpitations, dizziness, lightheadedness, or syncope. Patient denies any fatigue or tiredness. Upon review of the electrocardiograms, patient was noted to have evidence of high lateral infarct that subsequently resolved. Troponin I was noted to be elevated. PAST MEDICAL HISTORY: None. PAST SURGICAL HISTORY: None. SOCIAL HISTORY: Second-hand smoke exposure. FAMILY HISTORY: No family history of premature coronary artery disease. ALLERGIES: No known medical allergies. MEDICATIONS: Medical therapy at home none. Medical therapy currently includes aspirin 81 mg once a day, Lipitor 80 mg once a day, Plavix 75 mg once a day, IV heparin, Lopressor 25 mg once a day. REVIEW OF SYSTEMS: Head and neck: Denies headache, photophobia, blurring of vision. Respiratory: No cough or sputum production. Cardiovascular: As noted above. Gastrointestinal: Denies nausea, vomiting, diarrhea, abdominal discomfort. Genitourinary: No symptoms reported. Musculoskeletal: No symptoms reported. PHYSICAL EXAMINATION: Vital signs: Blood pressure is 95/73 mmHg, pulse rate is 85 beats per minute. Head and neck: Pupils equally reactive to light and accommodation. Extraocular muscles are intact. Anicteric sclerae. Negative JVD. No bruit appreciated. Chest: Clear to auscultation and percussion. Cardiovascular: S1, S2 regular. No murmurs, clicks, or gallops. Abdomen: Soft, benign. Normoactive bowel sounds. Extremities: Negative edema. Intact distal pulses. No calf tenderness. STUDIES: Electrocardiogram dated October 20, 2017, at 2057.31 revealed sinus rhythm with a hint of ST segment elevation in lead 1, aVL, and nonspecific ST segment changes in V5, V6. Repeat electrocardiogram again dated October 15, 2017, at 2225.[address] segment elevation in lead 1, aVL, V5, V6, with reciprocal ST segment depression in lead 3 and aVF. Electrocardiogram this a.m. October 21, 2017, revealed sinus rhythm with T-wave inversion in lead 1, aVL, V4 through V6. Chest x-ray was noted with vascular congestion. CPK and troponin I were noted. This a.m., troponin I is 8.19. CBC revealed a white cell count of 8.5, hemoglobin of 10.7, platelet count 338. Basic metabolic profile revealed sodium of 142, potassium 3.7, BUN 9, creatinine 0.6, glucose 100. LFTs were noted. ASSESSMENT: 1. Clinical presentation consistent with coronary artery disease post ST segment elevation, high lateral myocardial infarction with spontaneous reperfusion, angina pectoris. 2. Probable transient ischemic left ventricular dysfunction with acute class 1 [place] Heart [employer] classification congestive heart failure, resolved. Other differential diagnoses include Takotsubos cardiomyopathy, although unlikely. 3. Probable hypercholesterolemia. 4. Second-hand tobacco exposure. PLAN: 1. Continuation of aspirin, Plavix, and IV heparin with caution. 2. Continuation of beta-ebony therapy and dosing twice daily, hemodynamics permitting. 3. Recommend the addition of MATI inhibitor or angiotensin receptor blockers, hemodynamics permitting. 4. Continuation of Lipitor and obtaining fasting lipid profile. 5. Echocardiography for evaluation of left ventricular size and function. 6. Probable early right and left heart cardiac catheterization, coronary angiography for further evaluation and possible intervention. Above was discussed in detail with the patient. Risks, benefits, and alternatives were reviewed. Thank you for the kind referral. AFIA DEAL M.D. JUANY/[id number]
[2017-10-21] MEDS: CLOPIDOGREL BISULFATE 75 MG TABLET (FP) PO SCH (15:12)
--- NOTE | 2017-10-21 15:29 | PN ---
Teaching Attending Note Name of Resident: Davey Ascencio ATTENDING PHYSICIAN STATEMENT I saw and evaluated the patient. I reviewed the resident's note and discussed the case with the resident. I agree with the resident's findings and plan as documented. SUBJECTIVE:evaluated at 9 am No fever or chills, has no CP , denies SOB. OBJECTIVE: NAD CV: RRR, no MRG lung s: CTAB ext: no edema Abd: soft, NT, Nd, NL BS ASSESSMENT AND PLAN: 42 y/o lady with no sig PMH who presented with chest pain after an argument with daughter , she was found to have elevated trop with ST elevation 1- CP with elevated trop : case was d/w Dr. Juarez , DDx includes Takotsubo' s or ST segment elevation [place]. - dc IVF - trop peaked at 8. - Echo was reviewed by dr. Juarez and showed wall abnormality disproportional to the suspected injury form [place]. - plan to transfer for cath in am - cont tele - cont BB 25 BID - asa and plavix - heparin gtt - ACEI . - although cxray shows pulm eedema . no resp compromise, will not diurese. Critical Care Total Critical Care Time (in minutes): 40 Critical Care Statement: The care of this patient involved high complexity decision making to prevent further life threatening deterioration of the patient 's condition and/or to evaluate & treat vital organ system(s) failure or risk of failure.
[2017-10-21] MEDS: VALSARTAN 40 MG TABLET (FP) PO SCH (15:41)
--- NOTE | 2017-10-21 20:17 | PN ---
Physical Exam: SUBJECTIVE: Patient seen and examined. Pt denies any current chest pain. She states that her SOB has resolved. She has no complaints at this time. On further questioning, pt endorses a significant familial stressor preceding her chest pain. OBJECTIVE: Vital Signs Period Temp Pulse Resp BP Sys/Ferrera Pulse Ox Last 24 Hr 97.6 F-98.6 F 73-93 16-22 95-149/69-93 99-100 GENERAL: The patient is awake, alert, and fully oriented, in no acute distress. HEENT: NC, AT NECK: no JVD LUNGS: Breath sounds equal, clear to auscultation bilaterally, no wheezes, no crackles, no accessory muscle use. HEART: Regular rate and rhythm, S1, S2 without murmur, rub or gallop. ABDOMEN: Soft, nontender, nondistended, normoactive bowel sounds, no guarding, no rebound, no hepatosplenomegaly, no masses. EXTREMITIES: 2+ pulses, warm, well-perfused, no edema. NEUROLOGICAL: Cranial nerves II through XII grossly intact. Normal speech, gait not observed. Laboratory Results - last 24 hr 10/20/17 10/20/17 10/20/17 21:20 21:20 21:20 WBC 8.5 RBC 4.93 Hgb 10.7 D Hct 34.1 MCV 69.1 L MCH 21.8 L MCHC 31.6 L RDW 15.1 D Plt Count 328 D MPV 7.9 Neutrophils % 79.1 D Lymphocytes % 16.0 D Monocytes % 3.4 L Eosinophils % 0.8 Basophils % 0.7 Hypochromia 1+ Platelet Estimate Adequate Platelet Comment Polychromasia 1+ Anisocytosis 1+ Microcytosis 1+ Macrocytosis 1+ PT with INR 11.20 INR 0.99 PTT (Actin FS) Sodium Potassium Chloride Carbon Dioxide Anion Gap BUN Creatinine Creat Clearance w eGFR Random Glucose Hemoglobin A1c % Calcium Magnesium Total Bilirubin AST ALT Alkaline Phosphatase Creatine Kinase Creatine Kinase Index CK-MB (CK-2) Troponin I Total Protein Albumin Triglycerides Cholesterol Total LDL Cholesterol HDL Cholesterol Serum , Qual Negative Blood Type Antibody Screen 10/20/17 10/20/17 10/21/17 21:20 22:30 06:28 WBC RBC Hgb Hct MCV MCH MCHC RDW Plt Count MPV Neutrophils % Lymphocytes % Monocytes % Eosinophils % Basophils % Hypochromia Platelet Estimate Platelet Comment Polychromasia Anisocytosis Microcytosis Macrocytosis PT with INR 12.00 H INR 1.06 PTT (Actin FS) Sodium 143 Potassium 4.1 D Chloride 113 H Carbon Dioxide 23 Anion Gap 7 L BUN 8 D Creatinine 0.6 D Creat Clearance w eGFR > 60 Random Glucose 114 H D Hemoglobin A1c % Calcium 7.7 L Magnesium 2.3 Total Bilirubin 0.5 D AST 37 ALT 40 D Alkaline Phosphatase 123 H Creatine Kinase 306 H 303 H Creatine Kinase Index 2.2 2.5 CK-MB (CK-2) 6.982 H 7.827 H Troponin I 2.87 H* 4.34 H* Total Protein 7.5 Albumin 3.8 Triglycerides Cholesterol Total LDL Cholesterol HDL Cholesterol Serum , Qual Blood Type Antibody Screen 10/21/17 10/21/17 10/21/17 06:28 06:28 06:28 WBC RBC Hgb Hct MCV MCH MCHC RDW Plt Count MPV Neutrophils % Lymphocytes % Monocytes % Eosinophils % Basophils % Hypochromia Platelet Estimate Platelet Comment Polychromasia Anisocytosis Microcytosis Macrocytosis PT with INR INR PTT (Actin FS) Sodium 142 Potassium 3.7 Chloride 111 H Carbon Dioxide 22 Anion Gap 9 BUN 9 Creatinine 0.6 Creat Clearance w eGFR > 60 Random Glucose 100 Hemoglobin A1c % 5.5 Calcium 7.8 L Magnesium 2.4 Total Bilirubin 0.7 D AST 37 ALT 35 Alkaline Phosphatase 106 Creatine Kinase Creatine Kinase Index CK-MB (CK-2) Troponin I 8.16 H* Total Protein 6.8 Albumin 3.4 Triglycerides 80 Cholesterol 184 Total LDL Cholesterol 130 H HDL Cholesterol 39 L Serum , Qual Blood Type O POSITIVE Antibody Screen Negative 10/21/17 10/21/17 10/21/17 06:28 06:28 10:45 WBC RBC Hgb Hct MCV MCH MCHC RDW Plt Count MPV Neutrophils % Lymphocytes % Monocytes % Eosinophils % Basophils % Hypochromia Platelet Estimate Platelet Comment Polychromasia Anisocytosis Microcytosis Macrocytosis PT with INR INR PTT (Actin FS) 66.5 H Sodium Potassium Chloride Carbon Dioxide Anion Gap BUN Creatinine Creat Clearance w eGFR Random Glucose Hemoglobin A1c % Calcium Magnesium Total Bilirubin AST ALT Alkaline Phosphatase Creatine Kinase Creatine Kinase Index CK-MB (CK-2) Troponin I 8.19 H* 7.05 H* Total Protein Albumin Triglycerides Cholesterol Total LDL Cholesterol HDL Cholesterol Serum , Qual Blood Type Antibody Screen Active Medications Generic Name Dose Route Start Last Admin Trade Name Freq PRN Reason Stop Dose Admin Aspirin 81 mg 10/21/17 10:00 10/21/17 10:00 Asa - PO 81 mg DAILY [facility] Administration Atorvastatin Calcium 80 mg 10/21/17 22:00 Lipitor - PO HS [facility] Chlorhexidine Gluconate 1 applic 10/21/17 22:00 Hibiclens For Decolonization - TP HS [facility] Clopidogrel Bisulfate 75 mg 10/21/17 15:00 10/21/17 15:12 Plavix - PO Not Given DAILY [facility] Heparin Sodium (Porcine) 5,000 unit 10/20/17 22:35 10/20/17 23:31 Heparin - IVPUSH 5,000 unit PRN PRN Administration Heparin Heparin Sodium (Porcine) 25, 500 mls @ 16 mls/hr 10/20/17 22:45 10/20/17 23: 31 000 unit/ Sodium Chloride IV 800 unit/hr TITR SAROJ 16 mls/hr Protocol Administration 800 UNIT/HR Metoprolol Tartrate 25 mg 10/21/17 10:00 10/21/17 10:00 Lopressor - PO 25 mg BID SAROJ Administration Morphine Sulfate 1 mg 10/21/17 01:08 Morphine Sulfate IM Q6H PRN PAIN Nitroglycerin 0.4 mg 10/21/17 00:52 Nitrostat - SL Q5M PRN FOR CHEST PAIN Valsartan 40 mg 10/21/17 10:00 10/21/17 15:41 Diovan - PO 40 mg DAILY SAROJ Administration ASSESSMENT/PLAN: 42F w/ no significant PMH who presented with chest pain after an argument with daughter, and was found to have elevated troponin with ST elevation on EKG. #chest pain - possibly 2/[address] segment elevation [place]. - trops 2.8 --> 4.3 --> 8.19 --> 7.05 - Echo: per Dr. Juarez, there is wall abnormality disproportional to the suspected injury from [place]. - plan to transfer for cath to [place] in am - cont tele, lopressor 25 BID, ASA, plavix, heparin gtt, lipitor, morphine PRN -A1c: 5.5 -lipid panel: LDL of 130 - repeat CXR in am #FEN/ppx -no fluids -electrolytes wnl -cholesterol controlled diet -no GI ppx -heparin gtt -Davey Ascencio MD PGY1 Visit type - Emergency Visit Emergency Visit: Yes ED Registration Date: 10/20/17 Care time: The patient presented to the Emergency Department on the above date and was hospitalized for further evaluation of their emergent condition. - New Patient This patient is new to me today: Yes Date on this admission: 10/21/17 - Critical Care Critical Care patient: Yes Total Critical Care Time (in minutes): 35 Critical Care Statement: The care of this patient involved high complexity decision making to prevent further life threatening deterioration of the patient 's condition and/or to evaluate & treat vital organ system(s) failure or risk of failure.
--- NOTE | 2017-10-21 21:13 | EKG ---
Test Reason : Blood Pressure : / mmHG Vent. Rate : 074 BPM Atrial Rate : 074 BPM P-R Int : 140 ms QRS Dur : 078 ms QT Int : 408 ms P-R-T Axes : 049 042 142 degrees QTc Int : 452 ms NORMAL SINUS RHYTHM T WAVE ABNORMALITY, CONSIDER LATERAL ISCHEMIA ABNORMAL ECG WHEN COMPARED WITH ECG OF 20-OCT-2017 22:25, NO SIGNIFICANT CHANGE WAS FOUND Confirmed by MD RO, ANGELITA ([id number]) on 10/21/2017 9:13:38 PM [facility]erred By: [facility] Confirmed By:ANGELITA STARR MD
[2017-10-21 21:46] LABS: COCAINE, UR NEGATIVE ng/ml (CUTOFF=300); OPIATES, URI NEGATIVE ng/ml (CUTOFF=300); PHENCYCLIDINE,URINE NEGATIVE ng/ml (CUTOFF=25); URINE AMPHETAMINES NEGATIVE ng/ml (CUTOFF=500); URINE BARBITURATES NEGATIVE ng/ml (CUTOFF=200); URINE BENZODIAZEPINES NEGATIVE ng/ml (CUTOFF=200)
[2017-10-21 21:47] LABS: METHADONE, UR NEGATIVE ng/ml (CUTOFF=300)
[2017-10-21] MEDS ORDERED: ATORVASTATIN CA 10 MG TABLET (FP) PO SCH ×2 (22:00)
[2017-10-21] MEDS ORDERED: ATORVASTATIN CA 80 MG TABLET (FP) PO SCH (22:00)
[2017-10-21] MEDS ORDERED: CHLORHEXIDINE GLUCONATE 4% CLEANSER FOR DECOLONIZATION TP SCH (22:00)
[2017-10-22 06:39] LABS: BASO % 0.7 % (0-2.0); EOS % 2.9 % (0-4.5); HEMATOCRIT 31.3 % (32.4-45.2); HEMOGLOBIN 9.9 GM/dL (10.7-15.3); LYMPH % 35.2 % (8-40); MCH 21.7 pg (25.7-33.7); MCHC 31.7 g/dl (32.0-36.0); MEAN CELL VOLUME 68.5 fl (80-96); MEAN PLT VOLUME 7.8 fl (7.5-11.1); MONO % 6.7 % (3.8-10.2); NEUT % 54.5 % (42.8-82.8); PLATELET COUNT 295 K/MM3 (134-434); RBC 4.57 M/mm3 (3.60-5.2); WHITE BLOOD COUNT 8.2 K/mm3 (4.0-10.0)
[2017-10-22 06:50] LABS: INR 1.08 (0.82-1.09); PROTHROMBIN TIME (PATIENT) 12.2 SEC (9.98-11.88)
[2017-10-22 07:02] LABS: ALBUMIN 3.4 g/dl (3.4-5.0); ANION GAP 10 (8-16); BLOOD UREA NITROGEN 11 mg/dL (7-18); CALCIUM 8.2 mg/dL (8.5-10.1); CHLORIDE 109 mmol/L (98-107); CO2 24 mmol/L (21-32); GLUCOSE,RANDOM 84 mg/dL (74-106); MAGNESIUM 2.1 mg/dL (1.8-2.4); PHOSPHOROUS 2.9 mg/dL (2.5-4.9); POTASSIUM 3.5 mmol/L (3.5-5.1); SODIUM 143 mmol/L (136-145)
[2017-10-22 07:03] LABS: ALK PHOS 87 U/L (45-117); BILIRUBIN,TOTAL 0.9 mg/dL (0.2-1.0); CREATININE 0.6 mg/dL (0.55-1.02); SGOT/AST 31 U/L (15-37); SGPT/ALT 32 U/L (12-78); TOT PROT 6.9 g/dl (6.4-8.2)
[2017-10-22] MEDS: HEPARIN - 25,000 UNIT in SODIUM CHLORIDE 495 ML IV SCH (07:12)
[2017-10-22 08:16] VITALS: PULSE 66
[2017-10-22] MEDS ORDERED: POTASSIUM CHLORIDE TABS 20 MEQ TABLET.ER (FP) PO ONE (08:19)
[2017-10-22] MEDS ORDERED: PT OWN MED DRAWER 7, Y5N ONE (09:06)
[2017-10-22] MEDS: ASPIRIN 81 MG CHEWABLE TABLETS PO SCH (09:07)
[2017-10-22] MEDS: CLOPIDOGREL BISULFATE 75 MG TABLET (FP) PO SCH (09:08)
[2017-10-22] MEDS: METOPROLOL TARTRATE 25 MG TABLET (FP) PO SCH (09:08)
--- NOTE | 2017-10-22 10:15 | DS ---
Physical Exam: SUBJECTIVE: Patient seen and examined. No acute events overnight. Pt denies any current chest pain or shortness of breath. She has no subjective complaints. OBJECTIVE: Vital Signs Period Temp Pulse Resp BP Sys/Ferrera Pulse Ox Last 24 Hr 98 F-99.3 F 53-93 11-22 90-116/49-88 99-100 PHYSICAL EXAM GENERAL: The patient is awake, alert, and fully oriented, in no acute distress. HEENT: NC, AT, EOMI NECK: Trachea midline, full range of motion, supple. LUNGS: Breath sounds equal, clear to auscultation bilaterally, no wheezes, no crackles, no accessory muscle use. HEART: Regular rate and rhythm, S1, S2 without murmur, rub or gallop. ABDOMEN: Soft, nontender, nondistended, normoactive bowel sounds, no guarding, no rebound, no hepatosplenomegaly, no masses. EXTREMITIES: 2+ pulses, warm, well-perfused, no edema. NEUROLOGICAL: Cranial nerves II through XII grossly intact. Normal speech, gait not observed. PSYCH: Normal mood, normal affect. SKIN: Warm, dry, normal turgor, no rashes or lesions noted. LABS Laboratory Results - last 24 hr 10/21/17 10/21/17 10/22/17 10:45 19:30 06:20 WBC RBC Hgb Hct MCV MCH MCHC RDW Plt Count MPV Neutrophils % Lymphocytes % Monocytes % Eosinophils % Basophils % PT with INR INR PTT (Actin FS) 68.3 H Sodium Potassium Chloride Carbon Dioxide Anion Gap BUN Creatinine Creat Clearance w eGFR Random Glucose Calcium Phosphorus Magnesium Total Bilirubin AST ALT Alkaline Phosphatase Troponin I 7.05 H* Total Protein Albumin Opiates Screen Negative Methadone Screen Negative Barbiturate Screen Negative Phencyclidine Screen Negative Ur Amphetamines Screen Negative MDMA (Ecstasy) Screen Negative Benzodiazepines Screen Negative Cocaine Screen Negative U Marijuana (THC) Screen Negative 10/22/17 10/22/17 10/22/17 06:20 06:20 06:20 WBC 8.2 RBC 4.57 Hgb 9.9 L Hct 31.3 L MCV 68.5 L MCH 21.7 L MCHC 31.7 L RDW 15.0 Plt Count 295 MPV 7.8 Neutrophils % 54.5 D Lymphocytes % 35.2 D Monocytes % 6.7 D Eosinophils % 2.9 D Basophils % 0.7 PT with INR 12.20 H INR 1.08 PTT (Actin FS) Sodium 143 Potassium 3.5 Chloride 109 H Carbon Dioxide 24 Anion Gap 10 BUN 11 D Creatinine 0.6 Creat Clearance w eGFR > 60 Random Glucose 84 Calcium 8.2 L Phosphorus 2.9 Magnesium 2.1 Total Bilirubin 0.9 D AST 31 ALT 32 Alkaline Phosphatase 87 Troponin I Total Protein 6.9 Albumin 3.4 Opiates Screen Methadone Screen Barbiturate Screen Phencyclidine Screen Ur Amphetamines Screen MDMA (Ecstasy) Screen Benzodiazepines Screen Cocaine Screen U Marijuana (THC) Screen Echo: The left ventricle is borderline dilated. there is severe global hypokinesis of the left ventricle. Left ventricular systolic function is severely reduced. LVEF = 25%. The right ventricle is normal in size and function. The left atrium is moderately dilated. Right atrial size is normal. No significant valvular abnormalities. CXR: increased lung markings HOSPITAL COURSE: Date of Admission:10/20/17 Date of Discharge: 10/22/17 42F w/ no significant PMH who presented with chest pain after an argument with her daughter, and was found to have elevated troponins with ST elevation on EKG. Per cards: 1. clinical presentation is consistent with CAD post STEMI, high lateral CT with re-perfusion angina pectoris. 2. Probable transient LV ischemic dysfunction with acute class I NYHA classification LV congestive heart failure, resolved, other differential diagnosis includes Takotsubo's cardiomyopathy Pt was treated with oxygen, aspirin, BB, ACEI, high dose statin, heparin gtt, and plavix, and transferred to the ICU. Her troponins peaked at 8.19. Per cards , the echo shows that there is wall abnormality disproportional to the suspected injury from CT. Pt needs R & L HC and coronary angiography for further evaluation and possible intervention. Above was discussed in detail with the patient. Risks, benefits and alternatives were reviewed. Today, pt is hemodynamically stable, without subjective complaints, and is stable for discharge to [facility] for cardiac catheterization. Accepting physician is Dr. Chetan Overton. Case and plan discussed with Dr. Juarez. -Davey Ascencio MD PGY1 Minutes to complete discharge: 38 Discharge Summary Reason For Visit: MYOCARDIAL INFARCTION Current Active Problems Myocardial infarction (Acute) - Instructions Diet, Activity, Other Instructions: You presented with chest pain and were found to have a heart attack called an STEMI. You were treated with multiple medications to stabilize you. You are being transferred to another facility for a cardiac catheterization. You are being discharged on the following new medications: aspirin lipitor lopressor plavix diovan 1. Follow up with your PCP within one week of discharge from the other facility. If you don't have one, we have given you a referral for Dr. Galindo. 2. Follow up with cardiology, Dr. Juarez, within one week of discharge from the other facility. If you develop any chest pain, shortness of breath, or any other significant symptoms, return to the ED. Sami translation: Present dolor en el pecho y se encontr que jessica un ataque cardaco llamado STEMI. Usted fue tratado con mltiples medicamentos para estabilizarlo. Usted est siendo transferido a otra instalacin para un cateterismo cardaco. Le estn dando de john los siguientes medicamentos nuevos: aspirin lipitor lopressor plavix brynnvan 1. Jenna un seguimiento con jernigan PCP dentro de kirsten semana de christian sido dado de john de la otra instalacin. Si no tiene mary, le hemos dado kirsten referencia para el Dr. Galindo. 2. Jenna un seguimiento con cardiologa, Dr. Juarez, dentro de kirsten semana de christian sido dado de john de le otro hopsital. Si desarrolla cualquier dolor en el pecho, dificultad para respirar o cualquier otro sntoma significativo, regrese a la xenia de emergencias. Referrals: Chavo Galindo MD [Staff Physician] - Linda Juarez MD [Staff Physician] - STAFF,NOT ON [Primary Care Provider] - Disposition: TRANSFER ACUTE CARE/OTHER HOSP - Home Medications Comprehensive Discharge Medication List: Ambulatory Orders Aspirin [ASA -] 81 mg PO DAILY tab.chew 10/22/17 Atorvastatin Ca [Lipitor] 80 mg PO HS tablet 10/22/17 Clopidogrel Bisulfate [Plavix -] 75 mg PO DAILY #0 tablet 10/22/17 Metoprolol Tartrate [Lopressor -] 25 mg PO BID tablet 10/22/17 Valsartan [Diovan] 40 mg PO DAILY tablet 10/22/17 This patient is new to me today: Yes Date on this admission: 10/22/17 Emergency Visit: Yes ED Registration Date: 10/20/17 Care time: The patient presented to the Emergency Department on the above date and was hospitalized for further evaluation of their emergent condition. Critical Care patient: Yes Total Critical Care Time (in minutes): 40 Critical Care Statement: The care of this patient involved high complexity decision making to prevent further life threatening deterioration of the patient 's condition and/or to evaluate & treat vital organ system(s) failure or risk of failure. - Discharge Referral Referred to [facility] Med P.C.: No
[2017-10-22 10:27] VITALS: BP 109/81; TEMP 98
[2017-10-22] MEDS: VALSARTAN 40 MG TABLET (FP) PO SCH (10:29)
--- NOTE | 2017-10-22 10:38 | PN ---
Teaching Attending Note Name of Resident: Davey Ascencio ATTENDING PHYSICIAN STATEMENT I saw and evaluated the patient. I reviewed the resident's note and discussed the case with the resident. I agree with the resident's findings and plan as documented. SUBJECTIVE: Patient is comfortable with no acute distress, no shortness of breath, no fever or chills. OBJECTIVE: Vital Signs Temperature 98.0 F 10/22/17 10:00 Pulse Rate 66 10/22/17 10:00 Respiratory Rate 18 10/22/17 10:00 Blood Pressure 109/81 10/22/17 10:00 O2 Sat by Pulse Oximetry (%) 99 10/22/17 09:48 CBCD WBC 8.2 K/mm3 (4.0-10.0) 10/22/17 06:20 RBC 4.57 M/mm3 (3.60-5.2) 10/22/17 06:20 Hgb 9.9 GM/dL (10.7-15.3) L 10/22/17 06:20 Hct 31.3 % (32.4-45.2) L 10/22/17 06:20 MCV 68.5 fl (80-96) L 10/22/17 06:20 MCHC 31.7 g/dl (32.0-36.0) L 10/22/17 06:20 RDW 15.0 % (11.6-15.6) 10/22/17 06:20 Plt Count 295 K/MM3 (134-434) 10/22/17 06:20 MPV 7.8 fl (7.5-11.1) 10/22/17 06:20 CMP Sodium 143 mmol/L (136-145) 10/22/17 06:20 Potassium 3.5 mmol/L (3.5-5.1) 10/22/17 06:20 Chloride 109 mmol/L (98-107) H 10/22/17 06:20 Carbon Dioxide 24 mmol/L (21-32) 10/22/17 06:20 Anion Gap 10 (8-16) 10/22/17 06:20 BUN 11 mg/dL (7-18) D 10/22/17 06:20 Creatinine 0.6 mg/dL (0.55-1.02) 10/22/17 06:20 Creat Clearance w eGFR > 60 (>60) 10/22/17 06:20 Random Glucose 84 mg/dL (74-106) 10/22/17 06:20 Calcium 8.2 mg/dL (8.5-10.1) L 10/22/17 06:20 Total Bilirubin 0.9 mg/dL (0.2-1.0) D 10/22/17 06:20 AST 31 U/L (15-37) 10/22/17 06:20 ALT 32 U/L (12-78) 10/22/17 06:20 Alkaline Phosphatase 87 U/L (45-117) 10/22/17 06:20 Total Protein 6.9 g/dl (6.4-8.2) 10/22/17 06:20 Albumin 3.4 g/dl (3.4-5.0) 10/22/17 06:20 CARDIAC ENZYMES Creatine Kinase 303 IU/L (26-192) H 10/20/17 22:30 Troponin I 7.05 ng/ml (0.00-0.05) H* 10/21/17 10:45 Active Medications Generic Name Dose Route Start Last Admin Trade Name Freq PRN Reason Stop Dose Admin Aspirin 81 mg 10/21/17 10:00 10/22/17 09:07 Asa - PO 81 mg DAILY SAROJ Administration Atorvastatin Calcium 80 mg 10/21/17 22:00 10/21/17 21:52 Lipitor - PO 80 mg HS SAROJ Administration Chlorhexidine Gluconate 1 applic 10/21/17 22:00 10/21/17 21:52 Hibiclens For Decolonization - TP 1 applic HS SAROJ Administration Clopidogrel Bisulfate 75 mg 10/21/17 15:00 10/22/17 09:08 Plavix - PO 75 mg DAILY SAROJ Administration Heparin Sodium (Porcine) 5,000 unit 10/20/17 22:35 10/20/17 23:31 Heparin - IVPUSH 5,000 unit PRN PRN Administration Heparin Heparin Sodium (Porcine) 25, 500 mls @ 16 mls/hr 10/20/17 22:45 10/22/17 07: 12 000 unit/ Sodium Chloride IV Not Given TITR [facility] Protocol 800 UNIT/HR Metoprolol Tartrate 25 mg 10/21/17 10:00 10/22/17 09:08 Lopressor - PO 25 mg BID SAROJ Administration Morphine Sulfate 1 mg 10/21/17 01:08 Morphine Sulfate IM Q6H PRN PAIN Nitroglycerin 0.4 mg 10/21/17 00:52 Nitrostat - SL Q5M PRN FOR CHEST PAIN Valsartan 40 mg 10/21/17 10:00 10/22/17 10:29 Diovan - PO Not Given DAILY SAROJ PE: looks comfortable, sitting on the chair CHEST: CTABL Heart:S1S2 positive abdomen: soft Ext: positive for pulses, no edema Neuro:AAOx3, NFD, Cn2-12 grossly intact. EKG: reviewed on admission mild St elevation on lateral leads ASSESSMENT AND PLAN: Patient is a 42 y/o lady with no sig PMHx who presented with chest pain after an argument with daughter , she was found to have STEMI # STEMI ;CP with elevated trop with St elevation on admission on lateral leads Cannot r/o Takotsubo's syndrome, patient will go to [facility] for Cath. today arranged by By , accepting MD Dr.Toni Overton ; peaked trop. 8, Echo was reviewed by dr. Juarez .On BB 25 BID , asa and plavix , heparin gtt , ACEI . continue
--- NOTE | 2017-10-22 11:05 | PN ---
Physical Exam: SUBJECTIVE: Patient seen and examined No acute events overnight. Patient feels well this morning. Patient endorses large stressful event last Friday. Patient denies any chest pain, shortness of breath, palpitations, fever, chills. OBJECTIVE: Vital Signs Period Temp Pulse Resp BP Sys/Ferrera Pulse Ox Last 24 Hr 98 F-99.3 F 53-93 11-22 90-116/49-88 99-100 GENERAL: The patient is awake, alert, and fully oriented, in no acute distress. HEAD: Normal with no signs of trauma. EYES:Extraocular movements intact, sclera anicteric, conjunctiva clear. No ptosis. ENT: Oropharynx clear without exudates, moist mucous membranes. NECK: Trachea midline, full range of motion, supple. LUNGS: Breath sounds equal, clear to auscultation bilaterally, no wheezes, no crackles, no accessory muscle use. HEART: Regular rate and rhythm, S1, S2 without murmur, rub or gallop. ABDOMEN: Soft, nontender, nondistended, normoactive bowel sounds, no guarding, no rebound, no hepatosplenomegaly, no masses. EXTREMITIES: 2+ pulses, warm, well-perfused, no edema. PSYCH: Normal mood, normal affect. SKIN: Warm, dry, normal turgor, no rashes or lesions noted Laboratory Results - last 24 hr 10/21/17 10/21/17 10/22/17 10:45 19:30 06:00 WBC RBC Hgb Hct MCV MCH MCHC RDW Plt Count MPV Neutrophils % Lymphocytes % Monocytes % Eosinophils % Basophils % PT with INR INR PTT (Actin FS) Sodium Potassium Chloride Carbon Dioxide Anion Gap BUN Creatinine Creat Clearance w eGFR Random Glucose Calcium Phosphorus Magnesium Total Bilirubin AST ALT Alkaline Phosphatase Troponin I 7.05 H* Total Protein Albumin Serum , Qual Negative Opiates Screen Negative Methadone Screen Negative Barbiturate Screen Negative Phencyclidine Screen Negative Ur Amphetamines Screen Negative MDMA (Ecstasy) Screen Negative Benzodiazepines Screen Negative Cocaine Screen Negative U Marijuana (THC) Screen Negative 10/22/17 10/22/17 10/22/17 06:20 06:20 06:20 WBC 8.2 RBC 4.57 Hgb 9.9 L Hct 31.3 L MCV 68.5 L MCH 21.7 L MCHC 31.7 L RDW 15.0 Plt Count 295 MPV 7.8 Neutrophils % 54.5 D Lymphocytes % 35.2 D Monocytes % 6.7 D Eosinophils % 2.9 D Basophils % 0.7 PT with INR 12.20 H INR 1.08 PTT (Actin FS) 68.3 H Sodium Potassium Chloride Carbon Dioxide Anion Gap BUN Creatinine Creat Clearance w eGFR Random Glucose Calcium Phosphorus Magnesium Total Bilirubin AST ALT Alkaline Phosphatase Troponin I Total Protein Albumin Serum , Qual Opiates Screen Methadone Screen Barbiturate Screen Phencyclidine Screen Ur Amphetamines Screen MDMA (Ecstasy) Screen Benzodiazepines Screen Cocaine Screen U Marijuana (THC) Screen 10/22/17 06:20 WBC RBC Hgb Hct MCV MCH MCHC RDW Plt Count MPV Neutrophils % Lymphocytes % Monocytes % Eosinophils % Basophils % PT with INR INR PTT (Actin FS) Sodium 143 Potassium 3.5 Chloride 109 H Carbon Dioxide 24 Anion Gap 10 BUN 11 D Creatinine 0.6 Creat Clearance w eGFR > 60 Random Glucose 84 Calcium 8.2 L Phosphorus 2.9 Magnesium 2.1 Total Bilirubin 0.9 D AST 31 ALT 32 Alkaline Phosphatase 87 Troponin I Total Protein 6.9 Albumin 3.4 Serum , Qual Opiates Screen Methadone Screen Barbiturate Screen Phencyclidine Screen Ur Amphetamines Screen MDMA (Ecstasy) Screen Benzodiazepines Screen Cocaine Screen U Marijuana (THC) Screen Active Medications Generic Name Dose Route Start Last Admin Trade Name Manuelq PRN Reason Stop Dose Admin Aspirin 81 mg 10/21/17 10:00 10/22/17 09:07 Asa - PO 81 mg DAILY SAROJ Administration Atorvastatin Calcium 80 mg 10/21/17 22:00 10/21/17 21:52 Lipitor - PO 80 mg HS SAROJ Administration Chlorhexidine Gluconate 1 applic 10/21/17 22:00 10/21/17 21:52 Hibiclens For Decolonization - TP 1 applic HS SAROJ Administration Clopidogrel Bisulfate 75 mg 10/21/17 15:00 10/22/17 09:08 Plavix - PO 75 mg DAILY SAROJ Administration Heparin Sodium (Porcine) 5,000 unit 10/20/17 22:35 10/20/17 23:31 Heparin - IVPUSH 5,000 unit PRN PRN Administration Heparin Heparin Sodium (Porcine) 25, 500 mls @ 16 mls/hr 10/20/17 22:45 10/22/17 07: 12 000 unit/ Sodium Chloride IV Not Given TITR [facility] Protocol 800 UNIT/HR Metoprolol Tartrate 25 mg 10/21/17 10:00 10/22/17 09:08 Lopressor - PO 25 mg BID SAROJ Administration Morphine Sulfate 1 mg 10/21/17 01:08 Morphine Sulfate IM Q6H PRN PAIN Nitroglycerin 0.4 mg 10/21/17 00:52 Nitrostat - SL Q5M PRN FOR CHEST PAIN Valsartan 40 mg 10/21/17 10:00 10/22/17 10:29 Diovan - PO Not Given DAILY SAROJ ASSESSMENT/PLAN: 42 year old F with no pmh presenting with chest pain admitted to the ICU for STEMI vs Takotsubo's syndrome Cardiac Takotsubo's syndrome vs STEMI LV systolic heart failure- EF 25% -Echocardiogram reveals severe global hypokinesis -Troponin pending, last troponin 7.05 from 06.21 -Patient being transferred for cardiac catheterization -Continue aspirin, plavix, heparin drip, beta ebony, ARB, lipitor -Nitro/morphine prn -Oxygen 2L prn FEN/GI -No IVF -wnl -Cholesterol diet PPx -Heparin drip and Scds -No GI PPx indicated Dispo: Transfer for cardiac catheterization Visit type - Emergency Visit Emergency Visit: Yes ED Registration Date: 10/20/17 Care time: The patient presented to the Emergency Department on the above date and was hospitalized for further evaluation of their emergent condition. - New Patient This patient is new to me today: Yes Date on this admission: 10/22/17 - Critical Care Critical Care patient: Yes Total Critical Care Time (in minutes): 35 Critical Care Statement: The care of this patient involved high complexity decision making to prevent further life threatening deterioration of the patient 's condition and/or to evaluate & treat vital organ system(s) failure or risk of failure.
--- NOTE | 2017-10-22 11:13 | PN ---
Teaching Attending Note Name of Resident: Lenny Martinez ATTENDING PHYSICIAN STATEMENT I saw and evaluated the patient. I reviewed the resident's note and discussed the case with the resident. I agree with the resident's findings and plan as documented. SUBJECTIVE: Pt seen and examined in the ICU. No further chest pain or shortness of breath. Echocardiogram showing global hypokinesis. OBJECTIVE: Last Vital Signs Temp Pulse Resp BP Pulse Ox 98.0 F 66 18 109/81 99 10/22/17 10:00 10/22/17 10:00 10/22/17 10:00 10/22/17 10:00 10/22/17 09:48 Intake & Output 10/19/17 10/20/17 10/21/17 10/22/17 23:59 23:59 23:59 23:59 Intake Total 1827 84 Balance 1827 84 Weight 140 lb 156 lb 12.8 oz 158 lb 11.2 oz Gen: NAD in chair Heart: RRR Lung: decreased breath sounds at the bases Abd: soft, nontender Ext: no edema CBC, BMP 10/22/17 06:20 10/22/17 06:20 Active Medications Aspirin (Asa -) 81 mg PO DAILY [facility] Last Admin: 10/22/17 09:07 Dose: 81 mg Atorvastatin Calcium (Lipitor -) 80 mg PO HS [facility] Last Admin: 10/21/17 21:52 Dose: 80 mg Chlorhexidine Gluconate (Hibiclens For Decolonization -) 1 applic TP HS [facility] Last Admin: 10/21/17 21:52 Dose: 1 applic Clopidogrel Bisulfate (Plavix -) 75 mg PO DAILY [facility] Last Admin: 10/22/17 09:08 Dose: 75 mg Heparin Sodium (Porcine) (Heparin -) 5,000 unit IVPUSH PRN PRN PRN Reason: Heparin Last Admin: 10/20/17 23:31 Dose: 5,000 unit Heparin Sodium (Porcine) 25, (000 unit/ Sodium Chloride) 500 mls @ 16 mls/hr IV TITR SAROJ; 800 UNIT/HR PRN Reason: Protocol Last Admin: 10/22/17 07:12 Dose: Not Given Metoprolol Tartrate (Lopressor -) 25 mg PO BID SAROJ Last Admin: 10/22/17 09:08 Dose: 25 mg Morphine Sulfate (Morphine Sulfate) 1 mg IM Q6H PRN PRN Reason: PAIN Nitroglycerin (Nitrostat -) 0.4 mg SL Q5M PRN PRN Reason: FOR CHEST PAIN Valsartan (Diovan -) 40 mg PO DAILY SAROJ Last Admin: 10/22/17 10:29 Dose: Not Given ASSESSMENT AND PLAN: Acute STEMI vs Takotsubo's cardiomyopathy LV Systolic Dysunction Hypercholesterolemia - continue ASA, plavix - beta ebony, ARB, statin - heparin gtt per cardiology - nitrates, morphine PRN - O2 - for cardiac catheterization
--- NOTE | 2017-10-22 11:17 | PN ---
Progress Note, Physician History of Present Illness: Comfortable, denies further chest pain or dyspnea. - Current Medication List Current Medications: Active Medications Aspirin (Asa -) 81 mg PO DAILY [facility] Last Admin: 10/22/17 09:07 Dose: 81 mg Atorvastatin Calcium (Lipitor -) 80 mg PO HS [facility] Last Admin: 10/21/17 21:52 Dose: 80 mg Chlorhexidine Gluconate (Hibiclens For Decolonization -) 1 applic TP HS [facility] Last Admin: 10/21/17 21:52 Dose: 1 applic Clopidogrel Bisulfate (Plavix -) 75 mg PO DAILY [facility] Last Admin: 10/22/17 09:08 Dose: 75 mg Heparin Sodium (Porcine) (Heparin -) 5,000 unit IVPUSH PRN PRN PRN Reason: Heparin Last Admin: 10/20/17 23:31 Dose: 5,000 unit Heparin Sodium (Porcine) 25, (000 unit/ Sodium Chloride) 500 mls @ 16 mls/hr IV TITR SAROJ; 800 UNIT/HR PRN Reason: Protocol Last Admin: 10/22/17 07:12 Dose: Not Given Metoprolol Tartrate (Lopressor -) 25 mg PO BID [facility] Last Admin: 10/22/17 09:08 Dose: 25 mg Morphine Sulfate (Morphine Sulfate) 1 mg IM Q6H PRN PRN Reason: PAIN Nitroglycerin (Nitrostat -) 0.4 mg SL Q5M PRN PRN Reason: FOR CHEST PAIN Valsartan (Diovan -) 40 mg PO DAILY [facility] Last Admin: 10/22/17 10:29 Dose: Not Given - Objective Vital Signs: Vital Signs Temperature 98.0 F 10/22/17 10:00 Pulse Rate 66 10/22/17 10:00 Respiratory Rate 18 10/22/17 10:00 Blood Pressure 109/81 10/22/17 10:00 O2 Sat by Pulse Oximetry (%) 99 10/22/17 09:48 Constitutional: Yes: No Distress, Calm, Thin Neck: Yes: Supple Cardiovascular: Yes: Regular Rate and Rhythm Respiratory: Yes: Regular, CTA Bilaterally Gastrointestinal: Yes: Normal Bowel Sounds, Soft Edema: No Labs: CBC, BMP 10/22/17 06:20 10/22/17 06:20 INR, PTT INR 1.08 (0.82-1.09) 10/22/17 06:20 - ....Imaging EKG: Report Reviewed (Tele: No events) Problem List - Problems (1) Stress-induced cardiomyopathy Code(s): I51.81 - TAKOTSUBO SYNDROME (2) Hyperlipidemia Code(s): E78.5 - HYPERLIPIDEMIA, UNSPECIFIED Qualifiers: Hyperlipidemia type: pure hypercholesterolemia Qualified Code(s): E78.00 - Pure hypercholesterolemia, unspecified; E78.0 - Pure hypercholesterolemia Assessment/Plan 10/22/2017 Echo: Borderline dilated with severely decreased LV systolic dysfunction, LVEF 25%. normal RV size and fxn, mod LAE 1. Suspect stress-induced Takotsubo's cardiomyopathy 2. Hypercholesterolemia 3. Second hand tobacco exposure PLAN: 1. Continue ASA 81 qd, Plavix 75 qd and Heparin gtt 2. Continue Lopressor 25 bid and Diovan 40 qd with uptitration as tolerated 3. Continue Lipitor 80 qhs, fasting lipid profile noted 4. Plan for R&LHC & coronary angiography today, further recommendations to follow
--- NOTE | 2017-10-22 11:19 | EKG ---
Test Reason : Blood Pressure : / mmHG Vent. Rate : 089 BPM Atrial Rate : 089 BPM P-R Int : 126 ms QRS Dur : 084 ms QT Int : 390 ms P-R-T Axes : 045 039 018 degrees QTc Int : 474 ms NORMAL SINUS RHYTHM NONSPECIFIC T WAVE ABNORMALITY PROLONGED QT ABNORMAL ECG WHEN COMPARED WITH ECG OF 20-OCT-2017 20:57, NONSPECIFIC T WAVE ABNORMALITY, WORSE IN LATERAL LEADS Confirmed by QUINN GODINEZ, ARIES ([id number]) on 10/22/2017 11:19:00 AM Referred By: Confirmed By:ARIES BALL MD
--- NOTE | 2017-10-22 11:20 | EKG ---
Test Reason : Blood Pressure : / mmHG Vent. Rate : 085 BPM Atrial Rate : 085 BPM P-R Int : 130 ms QRS Dur : 074 ms QT Int : 384 ms P-R-T Axes : 050 039 018 degrees QTc Int : 456 ms NORMAL SINUS RHYTHM NORMAL ECG WHEN COMPARED WITH ECG OF 12-SEP-2013 20:45, ST ELEVATION NOW PRESENT IN LATERAL LEADS Confirmed by ARIES BALL MD ([id number]) on 10/22/2017 11:20:06 AM Referred By: Confirmed By:ARIES BALL MD
== END 2017-10-22 11:41 | disposition short-term general hospital (02) | DRG 190 ==
LOC: JER 20:46 → SUPCPDRO 20:46 → JERBED 23:11 → JICU 10-21 03:10
PROVIDERS: ADMIT Internal Medicine; ATTEND Internal Medicine
DX: I21.4 Non-ST elevation (NSTEMI) myocardial infarction (principal); R09.02 Hypoxemia; E78.00 Pure hypercholesterolemia, unspecified; I50.22 Chronic systolic (congestive) heart failure; I51.81 Takotsubo syndrome
CPT/HCPCS: 36415; 71010-TC; 80053; 80061; 80307; 82550; 82553; 83036; 83721; 83735; 84100; 84484; 84703; 85025; 85610; 85730; 86850; 86900; 86901; 90688; 93005; 93010; 93306-TC; 99285-25; G0008; J1644